=== PATIENT | female | born 1960 | race Caucasian/White ===

== ENCOUNTER → 2023-11-07 15:28 | Outpatient (REF) | payer OTHER, SELFPAY | LOC: HWWDC 15:28 | PROVIDERS: ATTENDING PHYSICIAN Nurse Practitioner Primary Care; FAMILY PHYSICIAN Internal Medicine Geriatric Medicine | DX: Z12.31 Encounter for screening mammogram for malignant neoplasm of breast (principal) | CPT/HCPCS: 77063; 77067 ==

== ENCOUNTER → 2024-04-25 06:26 | Day surgery (SDC) | payer OTHER, SELFPAY | LOC: GI 06:26 | PROVIDERS: ATTENDING PHYSICIAN Internal Medicine; FAMILY PHYSICIAN Nurse Practitioner Primary Care | DX: Z12.11 Encounter for screening for malignant neoplasm of colon (principal); D12.3 Benign neoplasm of transverse colon; K55.20 Angiodysplasia of colon without hemorrhage; K64.8 Other hemorrhoids; K56.2 Volvulus; K22.70 Barrett's esophagus without dysplasia; K44.9 Diaphragmatic hernia without obstruction or gangrene; K31.7 Polyp of stomach and duodenum; K29.70 Gastritis, unspecified, without bleeding; Z86.0109 Personal history of other colon polyps; Z13.810 Encounter for screening for upper gastrointestinal disorder | CPT/HCPCS: 45380; 43239; 88305; 88342 ==

== ENCOUNTER → 2025-05-29 11:24 | Outpatient (REF) | payer MEDICARE, OTHER, SELFPAY | LOC: DHSLP 11:24 | PROVIDERS: ATTENDING PHYSICIAN Nurse Practitioner Primary Care | DX: G47.33 Obstructive sleep apnea (adult) (pediatric) (principal); R09.02 Hypoxemia | CPT/HCPCS: 95800 ==